=== PATIENT | female | born 1955 | race Caucasian/White ===

== ENCOUNTER → 2016-05-11 | Outpatient (CLI) | payer OTHER | LOC: MC.RAD 09:20 | DX: Z12.31 Encounter for screening mammogram for malignant neoplasm of breast (principal); Z80.3 Family history of malignant neoplasm of breast ==

== ENCOUNTER → 2016-11-01 | Outpatient (CLI) | payer OTHER | LOC: COL.VAS 13:00 | DX: R20.0 Anesthesia of skin (principal); M79.662 Pain in left lower leg ==

== ENCOUNTER → 2017-01-05 | Outpatient (CLI) | payer OTHER, BC | LOC: MHCPAIN 09:19 | DX: G89.29 Other chronic pain (principal); M47.27 Other spondylosis with radiculopathy, lumbosacral region; M48.061 Spinal stenosis, lumbar region without neurogenic claudication | CPT/HCPCS: G0463 ==

== ENCOUNTER → 2017-01-27 | Outpatient (CLI) | payer OTHER, BC | LOC: MHCPAIN 08:45 | DX: M47.27 Other spondylosis with radiculopathy, lumbosacral region (principal); M99.53 Intervertebral disc stenosis of neural canal of lumbar region | CPT/HCPCS: J1100; J2250; J3010; Q9967 ==

== ENCOUNTER → 2017-02-16 | Outpatient (CLI) | payer OTHER, BC | LOC: MHCPAIN 09:24 | DX: G89.29 Other chronic pain (principal); M47.27 Other spondylosis with radiculopathy, lumbosacral region; M79.2 Neuralgia and neuritis, unspecified | CPT/HCPCS: G0463 ==

== ENCOUNTER → 2017-04-18 | Outpatient (CLI) | payer BC | LOC: MHCPAIN 09:17 | DX: G89.29 Other chronic pain (principal); M47.817 Spondylosis without myelopathy or radiculopathy, lumbosacral region; G62.9 Polyneuropathy, unspecified; M48.061 Spinal stenosis, lumbar region without neurogenic claudication | CPT/HCPCS: G0463 ==

== ENCOUNTER 2017-05-24 09:19 | Inpatient (IN) | payer BC ==
[~2017-05-24] VITALS: Ht 160 cm; Wt 63.6 kg
[2017-09-06] VITALS (11 sets, daily range): BP systolic 103–118; BP diastolic 43–70; PULSE 78–98; TEMP 98–98.6
[2017-09-06] MEDS ORDERED: CELEXA40 MG PO (01:00)
[2017-09-06] MEDS ORDERED: NEURONTIN300 MG/CAP PO (01:01)
[2017-09-06] MEDS ORDERED: FERROUS SU325 MG/TAB PO (01:02)
[2017-09-06] MEDS ORDERED: FOLIC ACID0.4 MG PO (01:02)
[2017-09-06] MEDS ORDERED: VITAMIN C500 MG PO (01:03)
[2017-09-06] MEDS ORDERED: MOBIC 7.5MG7.5 MG PO (01:04)
[2017-09-06] MEDS ORDERED: ULTRAM 50MG TAB50 MG PO (05:33)
[2017-09-07 00:41] VITALS: BP 117/65; PULSE 93; TEMP 99.5
[2017-09-07 03:46] VITALS: BP 105/61; PULSE 99; TEMP 98.5
[2017-09-07 08:51] VITALS: BP 109/59; PULSE 96; TEMP 99.4
[2017-09-07 12:05] VITALS: BP 105/6; BP 105/60; PULSE 86; TEMP 98.7
[2017-09-07 16:00] VITALS: BP 105/52; PULSE 85; TEMP 98.3
[2017-09-07] MEDS ORDERED: ASPI325T6 PO (16:59)
[2017-09-07] MEDS ORDERED: NORCO 325 MG-7.1 TAB PO (17:00)
[2017-09-07] MEDS ORDERED: SENOKOT S 50 MG1 TAB PO (17:01)
[2017-09-07] MEDS ORDERED: ROXICODONE 55 MG/TAB PO (17:01)
== END 2017-09-07 19:00 | disposition home or self-care (01) | DRG 483 ==
LOC: JCC 09-06 05:08
PROVIDERS: Orthopaedic Surgery
PROC: 0RRK0JZ Replacement of Left Shoulder Joint with Synthetic Substitute, Open Approach (ICD-10-PCS; principal; 2017-09-06 07:30)
DX: M19.012 Primary osteoarthritis, left shoulder (principal); F32.9 Major depressive disorder, single episode, unspecified; F41.9 Anxiety disorder, unspecified; I73.00 Raynaud's syndrome without gangrene
CPT/HCPCS: A4314; A9284; C1713; C1776; J0171; J0690; J1100; J2250; J2270; J2370; J2405; J2704; J2795; J3010; J7120

== ENCOUNTER → 2017-06-02 | Outpatient (CLI) | payer BC | LOC: MC.RAD 09:00 | DX: Z12.31 Encounter for screening mammogram for malignant neoplasm of breast (principal) ==

== ENCOUNTER → 2017-07-18 | Outpatient (CLI) | payer BC | LOC: MHCPAIN 08:59 | DX: G89.29 Other chronic pain (principal); M47.817 Spondylosis without myelopathy or radiculopathy, lumbosacral region; M54.16 Radiculopathy, lumbar region; M53.3 Sacrococcygeal disorders, not elsewhere classified | CPT/HCPCS: G0463 ==

== ENCOUNTER → 2017-08-24 | Outpatient (CLI) | payer BC | LOC: COL.LAB 10:50 | DX: Z01.812 Encounter for preprocedural laboratory examination (principal) ==

== ENCOUNTER → 2018-01-16 | Outpatient (CLI) | payer BC ==
[~2018-01-16] MED LIST: ASPI325T6 PO; CELEXA40 MG PO; FERROUS SU325 MG/TAB PO; FOLIC ACID0.4 MG PO; MOBIC 7.5MG7.5 MG PO; NEURONTIN300 MG/CAP PO; NORCO 325 MG-7.1 TAB PO; ROXICODONE 55 MG/TAB PO; SENOKOT S 50 MG1 TAB PO; ULTRAM 50MG TAB50 MG PO; VITAMIN C500 MG PO
== END ==
LOC: MHCPAIN 09:07
DX: G89.29 Other chronic pain (principal); M47.817 Spondylosis without myelopathy or radiculopathy, lumbosacral region; M54.16 Radiculopathy, lumbar region; M53.3 Sacrococcygeal disorders, not elsewhere classified
CPT/HCPCS: G0463

== ENCOUNTER → 2018-01-26 | Outpatient (CLI) | payer BC | LOC: MHCPAIN 08:12 | DX: M47.817 Spondylosis without myelopathy or radiculopathy, lumbosacral region (principal); M54.16 Radiculopathy, lumbar region | CPT/HCPCS: J1040; Q9967 ==

== ENCOUNTER → 2018-02-27 | Outpatient (CLI) | payer BC | LOC: MHCPAIN 10:13 | DX: G89.29 Other chronic pain (principal); M47.817 Spondylosis without myelopathy or radiculopathy, lumbosacral region; M54.16 Radiculopathy, lumbar region; M53.3 Sacrococcygeal disorders, not elsewhere classified | CPT/HCPCS: G0463 ==

== ENCOUNTER → 2018-07-05 | Outpatient (CLI) | payer BC | LOC: MC.RAD 09:44 | DX: Z12.31 Encounter for screening mammogram for malignant neoplasm of breast (principal) ==

== ENCOUNTER → 2018-08-07 | Outpatient (CLI) | payer BC | LOC: MHCPAIN 10:01 | DX: G89.29 Other chronic pain (principal); M47.817 Spondylosis without myelopathy or radiculopathy, lumbosacral region; M54.16 Radiculopathy, lumbar region; M53.3 Sacrococcygeal disorders, not elsewhere classified | CPT/HCPCS: G0463 ==

== ENCOUNTER → 2019-01-15 | Outpatient (CLI) | payer MEDICARE, BC | LOC: MHCPAIN 09:57 | DX: M47.817 Spondylosis without myelopathy or radiculopathy, lumbosacral region (principal); M54.16 Radiculopathy, lumbar region | CPT/HCPCS: G0463 ==

== ENCOUNTER → 2019-07-16 | Outpatient (CLI) | payer MEDICARE, BC | LOC: MC.RAD 12:52 | DX: Z12.31 Encounter for screening mammogram for malignant neoplasm of breast (principal) ==

== ENCOUNTER → 2019-08-06 | Outpatient (CLI) | payer MEDICARE, BC | LOC: MHCPAIN 10:14 | DX: M54.5 Low back pain (principal); M53.3 Sacrococcygeal disorders, not elsewhere classified; G89.29 Other chronic pain | CPT/HCPCS: G0463 ==

== ENCOUNTER → 2019-12-25 | Outpatient (CLI) | payer MEDICARE, BC | LOC: MHCPAIN 14:40 | DX: M47.817 Spondylosis without myelopathy or radiculopathy, lumbosacral region (principal); M54.5 Low back pain; M53.3 Sacrococcygeal disorders, not elsewhere classified; G89.29 Other chronic pain; M54.16 Radiculopathy, lumbar region | CPT/HCPCS: G0463 ==

== ENCOUNTER → 2020-01-03 | Outpatient (CLI) | payer MEDICARE, BC | LOC: MHCPAIN 13:36 | DX: M47.817 Spondylosis without myelopathy or radiculopathy, lumbosacral region (principal); M54.16 Radiculopathy, lumbar region | CPT/HCPCS: J1100; Q9967 ==

== ENCOUNTER → 2020-01-21 | Outpatient (CLI) | payer MEDICARE, BC | LOC: MHCPAIN 10:23 | DX: M47.817 Spondylosis without myelopathy or radiculopathy, lumbosacral region (principal); M54.5 Low back pain; M53.3 Sacrococcygeal disorders, not elsewhere classified; G89.29 Other chronic pain; M54.16 Radiculopathy, lumbar region | CPT/HCPCS: G0463 ==

== ENCOUNTER → 2020-01-24 | Outpatient (CLI) | payer MEDICARE, BC | LOC: MHCPAIN 09:47 | DX: M47.817 Spondylosis without myelopathy or radiculopathy, lumbosacral region (principal); M54.16 Radiculopathy, lumbar region | CPT/HCPCS: J1100; Q9967 ==

== ENCOUNTER → 2020-02-05 | Outpatient (CLI) | payer MEDICARE, BC | LOC: MHCPAIN 08:08 | DX: M47.816 Spondylosis without myelopathy or radiculopathy, lumbar region (principal); M54.16 Radiculopathy, lumbar region; G89.29 Other chronic pain | CPT/HCPCS: G0463 ==

== ENCOUNTER → 2020-02-21 | Outpatient (CLI) | payer MEDICARE, BC | LOC: MHCPAIN 07:57 | DX: M47.817 Spondylosis without myelopathy or radiculopathy, lumbosacral region (principal); M54.16 Radiculopathy, lumbar region | CPT/HCPCS: J1100; Q9967 ==

== ENCOUNTER → 2020-03-11 | Outpatient (CLI) | payer MEDICARE, BC | LOC: MHCPAIN 09:23 | DX: M47.816 Spondylosis without myelopathy or radiculopathy, lumbar region (principal); M53.3 Sacrococcygeal disorders, not elsewhere classified; M54.16 Radiculopathy, lumbar region; G89.29 Other chronic pain | CPT/HCPCS: G0463 ==

== ENCOUNTER → 2020-05-19 | Outpatient (CLI) | payer MEDICARE, BC | LOC: MC.RAD 10:00 | DX: N64.89 Other specified disorders of breast (principal); N64.4 Mastodynia ==

== ENCOUNTER → 2020-06-10 | Outpatient (CLI) | payer MEDICARE, BC | LOC: MHCPAIN 09:39 | DX: M54.16 Radiculopathy, lumbar region (principal); M54.89 Other dorsalgia; G89.29 Other chronic pain | CPT/HCPCS: G0463 ==

== ENCOUNTER 2020-06-12 09:00 | Outpatient (RCR) | payer MEDICARE, BC | END 2020-06-25 | disposition home or self-care (01) | LOC: WSPT | DX: M47.26 Other spondylosis with radiculopathy, lumbar region (principal) ==

== ENCOUNTER → 2020-09-10 | Outpatient (CLI) | payer MEDICARE, BC | LOC: MC.RAD 11:14 | DX: Z12.31 Encounter for screening mammogram for malignant neoplasm of breast (principal); N64.4 Mastodynia ==

== ENCOUNTER → 2020-09-15 | Outpatient (CLI) | payer MEDICARE, BC | LOC: MC.RAD 07:00 | DX: N64.89 Other specified disorders of breast (principal); N64.4 Mastodynia ==

== ENCOUNTER 2020-09-22 10:32 | Outpatient (RCR) | payer MEDICARE, BC | END 2020-12-21 | disposition home or self-care (01) | LOC: WSPT | DX: M47.26 Other spondylosis with radiculopathy, lumbar region (principal) ==

== ENCOUNTER → 2021-06-24 | Outpatient (CLI) | payer MEDICARE, BC | LOC: MHCPAIN 14:12 | DX: M47.816 Spondylosis without myelopathy or radiculopathy, lumbar region (principal); M54.50 Low back pain, unspecified; M48.062 Spinal stenosis, lumbar region with neurogenic claudication | CPT/HCPCS: G0463 ==

== ENCOUNTER → 2021-07-16 | Outpatient (CLI) | payer MEDICARE, BC | LOC: MHCPAIN 08:43 | DX: M47.817 Spondylosis without myelopathy or radiculopathy, lumbosacral region (principal); M53.3 Sacrococcygeal disorders, not elsewhere classified | CPT/HCPCS: J1100; Q9967 ==

== ENCOUNTER → 2021-08-05 | Outpatient (CLI) | payer MEDICARE, BC | LOC: MHCPAIN 09:28 | DX: M47.817 Spondylosis without myelopathy or radiculopathy, lumbosacral region (principal); M54.50 Low back pain, unspecified; M53.3 Sacrococcygeal disorders, not elsewhere classified | CPT/HCPCS: G0463 ==

== ENCOUNTER → 2021-08-20 | Outpatient (CLI) | payer MEDICARE, BC | LOC: MHCPAIN 09:14 | DX: M47.817 Spondylosis without myelopathy or radiculopathy, lumbosacral region (principal); M54.50 Low back pain, unspecified; M53.3 Sacrococcygeal disorders, not elsewhere classified ==

== ENCOUNTER → 2021-09-14 | Outpatient (CLI) | payer MEDICARE, BC ==
[~2021-09-14] MED LIST changes: +BENADRYL25 M2 PO; +INDERAL 10MG10 MG PO; +ZYRTEC 10MG10 MG PO
== END ==
LOC: MHCPAIN 12:16
DX: M47.817 Spondylosis without myelopathy or radiculopathy, lumbosacral region (principal); M53.3 Sacrococcygeal disorders, not elsewhere classified; M54.50 Low back pain, unspecified
CPT/HCPCS: G0463

== ENCOUNTER → 2021-10-08 | Outpatient (CLI) | payer MEDICARE, BC | LOC: MHCPAIN 12:43 | DX: M47.817 Spondylosis without myelopathy or radiculopathy, lumbosacral region (principal); M53.3 Sacrococcygeal disorders, not elsewhere classified; M54.59 Other low back pain | CPT/HCPCS: G0463; J1100; J2250; J3010 ==

== ENCOUNTER → 2021-10-29 | Outpatient (CLI) | payer MEDICARE, BC | LOC: MC.RAD 09:31 | DX: Z12.31 Encounter for screening mammogram for malignant neoplasm of breast (principal); N64.89 Other specified disorders of breast ==

== ENCOUNTER → 2021-11-04 | Outpatient (CLI) | payer MEDICARE, BC | LOC: MC.RAD 12:50 | DX: N63.11 Unspecified lump in the right breast, upper outer quadrant (principal) ==

== ENCOUNTER → 2021-11-11 | Outpatient (CLI) | payer MEDICARE, BC | LOC: MC.RAD 12:43 | DX: N63.10 Unspecified lump in the right breast, unspecified quadrant (principal) ==

== ENCOUNTER → 2022-11-23 | Outpatient (CLI) | payer MEDICARE, BC ==
[~2022-11-23] MED LIST changes: +NORCO 325 MG-51 TAB PO
== END ==
LOC: MC.RAD 11:32
DX: Z12.31 Encounter for screening mammogram for malignant neoplasm of breast (principal); C77.3 Secondary and unspecified malignant neoplasm of axilla and upper limb lymph nodes; Z85.3 Personal history of malignant neoplasm of breast; Z17.0 Estrogen receptor positive status [ER+]; Z80.3 Family history of malignant neoplasm of breast

== ENCOUNTER → 2023-08-24 | Outpatient (CLI) | payer MEDICARE, BC | LOC: MHCPAIN 09:03 | DX: M48.061 Spinal stenosis, lumbar region without neurogenic claudication (principal); M79.2 Neuralgia and neuritis, unspecified; M54.50 Low back pain, unspecified | CPT/HCPCS: G0463 ==

== ENCOUNTER → 2023-11-21 | Outpatient (CLI) | payer MEDICARE, BC | LOC: MHCPAIN 13:26 | DX: M47.27 Other spondylosis with radiculopathy, lumbosacral region (principal); M48.061 Spinal stenosis, lumbar region without neurogenic claudication; M47.819 Spondylosis without myelopathy or radiculopathy, site unspecified; M54.50 Low back pain, unspecified; M79.2 Neuralgia and neuritis, unspecified | CPT/HCPCS: G0463 ==

== ENCOUNTER → 2023-12-15 | Outpatient (CLI) | payer MEDICARE, BC ==
[~2023-12-15] MED LIST changes: +Lidocaine PF 2% (20 MG/ML) 5 ML VIAL ONE; +Midazolam 2 MG/2 ML VIAL ONE; +fentaNYL 50 MCG/ML 2 ML VIAL ONE
== END ==
LOC: MHCPAIN 08:44
DX: M47.816 Spondylosis without myelopathy or radiculopathy, lumbar region (principal); M54.50 Low back pain, unspecified; M54.17 Radiculopathy, lumbosacral region; M48.061 Spinal stenosis, lumbar region without neurogenic claudication
CPT/HCPCS: J0665; J2250; J3010

== ENCOUNTER → 2023-12-16 | Outpatient (CLI) | payer MEDICARE, BC ==
[~2023-12-16] MED LIST changes: -Lidocaine PF 2% (20 MG/ML) 5 ML VIAL ONE; -Midazolam 2 MG/2 ML VIAL ONE; -fentaNYL 50 MCG/ML 2 ML VIAL ONE
== END ==
LOC: MC.RAD 10:14
DX: Z12.31 Encounter for screening mammogram for malignant neoplasm of breast (principal); C50.411 Malignant neoplasm of upper-outer quadrant of right female breast